=== PATIENT | female | born 1995 | race Two or more races ===

== ENCOUNTER 2018-12-30 09:59 | Emergency (ER) | payer BC ==
[~2018-12-30] VITALS: Ht 162.6 cm; Wt 77.0 kg
[2018-12-30] MEDS ORDERED: SUMATRIPTAN SUCCINATE 6MG/0.5ML VIAL SUBCUT ONE (13:30)
[2018-12-30 15:21] VITALS: BP 110/65
== END 2018-12-30 15:22 | disposition home or self-care (01) ==
LOC: ER 09:59
DX: G43.909 Migraine, unspecified, not intractable, without status migrainosus (principal)
CPT/HCPCS: 96372; 99283; J3030; Z7610